=== PATIENT | female | born 1960 | race Caucasian/White ===

== ENCOUNTER 2021-09-28 16:39 | Emergency (ER) | payer BC ==
[~2021-09-28] VITALS: Ht 167.6 cm; Wt 104.3 kg
--- NOTE | 2021-09-28 17:09 | PHYS DOC ---
Past History Additional Past Medical Histor: PE 14yr ago (RENE CASSIDY MD) Past Surgical History: Other (RENE CASSIDY MD) Alcohol Use: None (RENE CASSIDY MD) General Adult EDM: Chief Complaint: TOE PROBLEM HPI: HPI: Patient is a 60-year-old female coming in for discoloration to her right fourth toe. Patient states she noticed some pain and swelling followed by discoloration 2 days ago. She denies any possibility of injury. Patient was concerned for infection so she has been using topical antibiotic ointment, and acetaminophen for pain. Patient denies any history of claudication or peripheral vascular disease. Patient is a history of hypertension and previous PEs about 15 years ago. She has not been on anticoagulation since. Denies any history of diabetes. Patient was seen at urgent care and was sent to emergency department for further evaluation due to concern for a blood clot. Patient denies any personal or family history of coagulopathy or peripheral arterial disease. Denies any systemic complaints, has had a Covid vaccines. (RENE CASSIDY MD) Review of Systems: Review of Systems: All other systems within normal limits except for as noted in the HPI (RENE CASSIDY MD) Allergies: Allergies: Allergies Coded Allergies Type Severity Reaction Last Updated Verified codeine Allergy Unknown 01/30/15 Yes vancomycin Allergy Unknown 10/30/13 Yes (RENE CASSIDY MD) Physical Exam: PE: Constitutional: Well developed, well nourished, no acute distress, non-toxic appearance. [] HENT: Normocephalic, atraumatic, bilateral external ears normal, nose normal. [] Eyes: PERRLA, conjunctiva normal, no discharge. [] Neck: No rigidity, supple, no stridor. [] Cardiovascular: Regular rate and rhythm, brisk cap refill in all toes, symmetric DP pulses [] Lungs & Thorax: Non labored symmetric respirations, no tachypnea or respiratory distress [] Abdomen: Soft, nondistended. Skin: Warm, dry, no erythema, no rash. [] Back: Unremarkable Extremities: No deformities, range of motion grossly intact, no lower extremity edema. Tenderness and swelling of right fourth toe [] Neurologic: Alert and oriented X 3, no focal deficits noted. [] Psychologic: Affect normal, judgement normal, mood normal. [] (RENE CASSIDY MD) Current Patient Data: Vital Signs: Vital Signs Date Time Temp Pulse Resp B/P (MAP) Pulse Ox O2 Delivery O2 Flow Rate FiO2 09/28/21 16:53 98 18 146/93 (110) 100 (RENE CASSIDY MD) EKG: EKG: Sinus rhythm, heart rate 84 bpm, normal intervals, no ST elevation depression, no ectopy, left axis deviation [] (RENE CASSIDY MD) Radiology/Procedures: Radiology/Procedures: [address] [address] IMAGING REPORT Signed PATIENT: LIYA CAMPBELL ACCOUNT: [id number] : 1960 LOCATION: ER AGE: 60 SEX: F EXAM STATUS: REG ER ORD. PHYSICIAN: RENE CASSIDY MD REASON: swollen toe PROCEDURE: TOES RIGHT EXAM: Right fifth toe 3 views. HISTORY: Pain/swelling. COMPARISON: None. FINDINGS: No fractures are identified. 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 Other joint spaces and alignment appear maintained. IMPRESSION: 1. No fractures are appreciated at the fifth digit. 2. Moderate first metatarsophalangeal osteoarthritis. Electronically signed by: Vadim Barahona MD (09/28/2021 5:41 PM) [facility] DICTATED AND SIGNED BY: TRU BARAHONA MD DATE: 09/28/21 7188 CC: RENE CASSIDY MD; INA VEE ~MTH0 0 [] (RENE CASSIDY MD) Heart Score: C/O Chest Pain: No Risk Factors: Risk Factors: DM, Current or recent (<one month) smoker, HTN, HLP, family history of CAD, obesity. Risk Scores: Score 0 - 3: 2.5% MACE over next 6 weeks - Discharge Home Score 4 - 6: 20.3% MACE over next 6 weeks - Admit for Clinical Observation Score 7 - 10: 72.7% MACE over next 6 weeks - Early Invasive Strategies (RENE CASSIDY MD) Course & Med Decision Making: Course & Med Decision Making Pertinent Labs and Imaging studies reviewed. (See chart for details) Pending ultrasound at shift change. [] (REEN CASSIDY MD) Course & Med Decision Making Patient's care handed off to me at checkout pending labs and disposition. Patient awake alert and oriented no acute distress. Vital signs not concerning. Patient pain controlled. Concerns for patient include a differential diagnosis of vascular insufficiency/VTE versus infection versus inflammatory arthritis. Imaging with no broken bones but does show arthritis and no free air. Ultrasound showed no lower extremity VTE. D-dimer normal for age. Inflammatory markers CRP and ESR not concerning. Discussed all findings with patient and differential of infection versus inflammation. Started on antibiotics to cover for cellulitis and high-dose ibuprofen and Tylenol as well as education on gout. Discussed with patient the need for immediate follow-up with primary care physician in the morning to discuss ED visit and set up a follow-up appointment in 5 to 7 days for reevaluation. Gave strict return precautions to the ED. Family grateful, verbalized understanding and agreed with plan of discharge. (BEN HOUSER MD) Dragon Disclaimer: Dragon Disclaimer: This electronic medical record was generated, in whole or in part, using a voice recognition dictation system. (RENE CASSIDY MD) Departure Departure: Impression: Primary Impression: Toe pain Additional Impressions: Cellulitis Gout Disposition: 01 HOME / SELF CARE / HOMELESS Condition: GOOD Referrals: INA VEE (PCP) Patient Instructions: Cellulitis, Gout Additional Instructions: Thank you for coming into the emergency department tonight and allowing us to take care of you. Please read the attached information carefully to go back over some of the things we discussed. Please adjust your diet as we discussed in case what you are suffering from is gout. Please take your antibiotics as prescribed and until gone to cover for infection as we discussed. Please begin an ibuprofen and Tylenol regimen taking 600 mg of ibuprofen every 6 hours and 1000 mg of Tylenol every 8 hours. You can also use ice as needed. As we discussed it is very important that you follow-up in the morning with your primary care physician to discuss your ED visit and set up a follow-up in 5 to 7 days for reevaluation. Please come back to the emergency department immediately with new or concerning symptoms as we discussed. Scripts Amoxicillin/Potassium Clav (AUGMENTIN 875-125 TABLET) 1 Each Tablet 1 TAB PO BID for cellulitis for 10 Days, #20 TAB 0 Refills Prov: BEN HOUSER MD 09/28/21 RENE CASSIDY MD Sep 28, 2021 17:09 BEN HOUSER MD Sep 28, 2021 19:41
[2021-09-28] MEDS ORDERED: ASPIRIN CHEWABLE 81 MG TABLET. PO ONE (17:15)
--- NOTE | 2021-09-28 17:27 | EKG ---
[address] [address] Test Date: 2021-09-28 Test Time: 17:19:21 Pat Name: LIYA CAMPBELL Department: Room: Gender: F Director Of Research: PHOEBE : 1960 Requested By: RENE CASSIDY Order Number: [id number] Reading MD: Grupo Ross Measurements Intervals [place] Rate: 84 P: 28 AR: 172 QRS: -31 QRSD: 74 T: -1 QT: 344 QTc: 410 Interpretive Statements SINUS RHYTHM ABNORMAL LEFT AXIS DEVIATION R-S TRANSITION ZONE IN V LEADS DISPLACED TO THE LEFT QRS(T) CONTOUR ABNORMALITY CONSISTENT WITH POSSIBLE OLD INFERIOR INFARCT Electronically Signed On 09-29-2021 9:30:55 [employer] ARCHITECT by Grupo Ross
[2021-09-28 17:36] LABS: BASO # 0.1 x10^3/uL (0.0-0.2); BASO % 1 % (0-3); EOS # 0.2 x10^3/uL (0.0-0.7); EOS % 2 % (0-3); HEMATOCRIT 42.4 % (36.0-47.0); HEMOGLOBIN 14.5 g/dL (12.0-15.5); LYMPH # 2.6 x10^3/uL (1.0-4.8); LYMPH % 29 % (24-48); MEAN CORPUSCULAR HEMOGLOBIN 34 pg (25-35); MEAN CORPUSCULAR HGB CONC 34 g/dL (31-37); MEAN CORPUSCULAR VOLUME 99 fL (79-100); MONO # 0.6 x10^3/uL (0.0-1.1); MONO % 6 % (0-9); NEUT # 5.6 x10^3uL (1.8-7.7); NEUT % 62 % (31-73); PLATELET COUNT 262 x10^3/uL (140-400); RED CELL DISTRIBUTION WIDTH 13.5 % (11.5-14.5); WHITE BLOOD COUNT 9.1 x10^3/uL (4.0-11.0)
--- NOTE | 2021-09-28 17:43 | RAD ---
EXAM: Right fifth toe 3 views. HISTORY: Pain/swelling. COMPARISON: None. FINDINGS: No fractures are identified. 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 Other joint spaces and alignment appear maintai rey. IMPRESSION: 1. No fractures are appreciated at the fifth digit. 2. Moderate first metatarsophalangeal osteoarthritis. Electronically signed by: Vadim Barahona MD (09/28/2021 5:41 PM) [facility]
[2021-09-28 17:47] LABS: CALCIUM 8.8 mg/dL (8.5-10.1); CREATININE 0.9 mg/dL (0.6-1.0); GFR 63.7; POTASSIUM 3.6 mmol/L (3.5-5.1)
[2021-09-28 18:00] LABS: ALBUMIN 3.4 g/dL (3.4-5.0); TOTAL BILIRUBIN 0.2 mg/dL (0.2-1.0); TOTAL PROTEIN 6.7 g/dL (6.4-8.2)
--- NOTE | 2021-09-28 18:45 | RAD ---
US RIGHT LOWER EXTREMITY ARTERIAL DUPLEX EVAL 09/28/2021 5:54 PM INDICATION: Blue toe COMPARISON: None available. TECHNIQUE: Sonographic evaluation the right lower extremity arterial system was performed utilizing grayscale, color Doppler and spectral waveform analysis. FINDINGS: Right lower extremity: Monophasic waveforms identified throughout the right lower extremity. Common femoral artery: 70 cm/s Profunda artery: 44 cm/s Superficial femoral artery, proximal: 52 cm/s Superficial femoral artery, mid: 58 cm/s Superficial femoral artery, distal: 45 cm/s Popliteal artery: 41 cm/s Posterior tibial artery: 44-62 cm/s Anterior tibial artery: 58 cm/s Peroneal artery: 14 cm/s Dorsalis pedis artery: 53 cm/s IMPRESSION: No hemodynamically significant stenosis involving the right lower extremity arterial system. Electronically signed by: Cynthia Matthews MD (09/28/2021 6:43 PM) [facility]
[2021-09-28] MEDS ORDERED: oxyCODONE/APAP 5/325 1 TAB TABLET PO ONE (19:00)
[2021-09-28] MEDS ORDERED: IBUPROFEN 600 MG TABLET. PO ONE (19:15)
[2021-09-28] MEDS ORDERED: AMOX1TAB61 PO (19:41)
[2021-09-28] MEDS ORDERED: AMOXICILLIN/K CLAV 875/125MG TABLET. PO ONE (20:00)
[2021-09-28 20:01] VITALS: BP 109/73
== END 2021-09-28 20:05 | disposition home or self-care (01) ==
LOC: ER 16:39
DX: L03.031 Cellulitis of right toe (principal); M10.9 Gout, unspecified; M79.674 Pain in right toe(s); Z88.5 Allergy status to narcotic agent; Z88.1 Allergy status to other antibiotic agents
CPT/HCPCS: 36415; 73660; 80053; 82550; 83605; 83874; 83880; 85025; 85379; 85610; 85651; 86140; 93005; 93926; 99285